=== PATIENT | female | born 1965 | race American Indian/Alaskan Native ===

== ENCOUNTER 2017-01-13 10:41 | Emergency (ER) | payer SELFPAY ==
--- NOTE | ~2017-01-13 | ER ---
PATIENT'S NAME: CYNTHIAMARIBELLBEND [facility] AGE: 51 Y [address] ROOM: [place] [address] LOCATION: [facility] ADMIT DATE: 01/13/2017 ER/Outpatient Report DISCHARGE DATE: 01/13/2017 FAMILY PHYSICIAN: PHYSICIAN, MARTI ATTENDING PHYSICIAN: Kitty Ricks Time of Arrival: 1041 hours. Time of Evaluation: 1110 hours. IDENTIFICATION: A 51-year-old female. CHIEF COMPLAINT: Left earache. HISTORY OF PRESENT ILLNESS: The patient presents complaining of left earache starting 1 week ago, . No fever or chills. She has had some nasal congestion. No drainage. No other problems or concerns. ALLERGIES: NO KNOWN DRUG ALLERGIES. CURRENT MEDICATIONS: No depression medications for the past 4 months. MEDICAL PROBLEMS: Depression. PRIOR SURGERIES: Tonsillectomy, tubal ligation, and right ear surgery as a child. SOCIAL HISTORY: The patient recently moved here from [place]. She is currently living at the [facility]. Tobacco use, 6 to 8 cigarettes per day. Alcohol use, denies. Drug use, denies. REVIEW OF SYSTEMS: All systems reviewed and negative other than what is noted in the HPI. FAMILY HISTORY: No pertinent family history. PHYSICAL EXAMINATION: VITAL SIGNS: Height 5 feet and 3 inches, weight 110.3 kg, blood pressure PATIENT'S NAME: DELMI [facility] AGE: 51 Y [address] ROOM: [place] [address] LOCATION: [facility] ADMIT DATE: 01/13/2017 ER/Outpatient Report DISCHARGE DATE: 01/13/2017 FAMILY PHYSICIAN: PHYSICIAN, MARTI ATTENDING PHYSICIAN: Kitty Ricks 133/63, pulse 73, respirations 16, temperature 98.4, and saturations 97% on room air. GENERAL: A 51-year-old female, in no acute distress. HEENT: Head: Normocephalic and atraumatic. Ears: TM translucent on the right. Left TM mildly erythematous. NECK: Supple. No lymphadenopathy. She is tender in the left anterior cervical lymphadenopathy. LUNGS: Clear to auscultation. HEART: Regular rate and rhythm. No murmur, rub, or gallop. ABDOMEN: Bowel sounds present. Soft. Nondistended. No hepatosplenomegaly. No palpable masses. Nontender. SKIN: [place], warm, and dry. No lesions or rashes noted. NEURO: No focal abnormalities. IMPRESSION: Left otitis media. PLAN: Amoxicillin 500 mg 2 tablets b.i.d. for 7 days, Tylenol or Advil, warm compresses as needed, and follow up with primary care at [facility] in 3 to 4 days. Follow up sooner if any problems or concerns. The patient understands and agrees, and all questions have been answered. MD PHYLLIS NAGEL/stacie /[id number] d: 01/13/172 t: 01/14/17 1427, OUTPATIENT REPORT
[2017-01-27] MEDS ORDERED: AMOXICILLIN250 MG PO (10:09)
[2017-01-27] MEDS ORDERED: SEROQUEL100 MG PO (10:31)
[2017-01-27] MEDS ORDERED: ZOLOFT50 MG PO (10:32)
[2017-01-27] MEDS ORDERED: SEROQUEL25 MG PO (10:34)
== END 2017-01-13 11:20 | disposition disaster alternative care site (69) ==
LOC: GMED 10:41
DX: H66.92 Otitis media, unspecified, left ear (principal)

== ENCOUNTER 2017-02-06 16:12 | Emergency (ER) | payer SELFPAY ==
--- NOTE | ~2017-02-06 | ER ---
PATIENT'S NAME: JARRED AWAD [facility] AGE: 51 Y [address] ROOM: [place] [address] LOCATION: [facility] ADMIT DATE: 02/06/2017 ER/Outpatient Report DISCHARGE DATE: FAMILY PHYSICIAN: PHYSICIAN, NO ATTENDING PHYSICIAN: Kevin Del Rio Admit Time: 1612 hours. Time of Evaluation: 1620 hours. CHIEF COMPLAINT: Left-sided facial swelling. HISTORY OF PRESENT ILLNESS: Jarred is a 51-year-old female, presents with staff from [facility] here in [place] with an onset of left-sided facial swelling. This started this morning. She reports she has also had a headache off and on for the last two days, it is tension in characteristic and encircles her whole head. She was seen here about 2-[address] Ricks, in which she did have a left otitis media, was treated with amoxicillin 500 mg two tablets twice a day for 7 days, in which she reports this is improved. She did finish her entire course. Also, yesterday, she was eating a jawbreaker, she reports having a little chip to her left front tooth. Also, she has had a history of a broken tooth to the left side that was greater than 6 months ago, but that was on the bottom. The patient denies any fevers, chills, nausea, vomiting. She denies any upper respiratory illnesses and/or symptoms. She denies any new exposures, shortness of breath, chest pain, or any possible allergic reaction. PAST MEDICAL HISTORY: 1. Depression with anxiety. 2. History of alcohol abuse, recovering alcoholic. 3. History of methamphetamine use. ALLERGIES: NO KNOWN MEDICAL ALLERGIES. MEDICATIONS: 1. Seroquel 150 mg 1 p.o. at h.s. 2. Zoloft 25 mg 1 p.o. daily. 3. Seroquel 25 mg 1 p.o. every 6 hours p.r.n. anxiety. SOCIAL HISTORY: The patient does smoke about 7 cigarettes a day, has a 35-year history of smoking. She has not drink any alcohol in the last 3 weeks. She does have a history of methamphetamine use, denies any abuse with narcotics. PATIENT'S NAME: JARRED AWAD [facility] AGE: 51 Y [address] ROOM: [place], [place] [address] LOCATION: [facility] ADMIT DATE: 02/06/2017 ER/Outpatient Report DISCHARGE DATE: FAMILY PHYSICIAN: PHYSICIAN, NO ATTENDING PHYSICIAN: Kevin Del Rio FAMILY HISTORY: Not obtained. REVIEW OF SYSTEMS: All systems reviewed by myself and negative the exception of those noted in the HPI. PHYSICAL EXAM: VITAL SIGNS: Height 5 feet 3 inches, weight 107.6 kg, temp 99.6, pulse 87, respirations 16, blood pressure 124/86, she is 95% on room air. GENERAL: The patient is alert, cooperative, in no acute distress. SKIN: Overall is within normal limits. HEAD: Normocephalic, atraumatic. EYES: Sclerae are nonicteric. Pupils equal, round, reactive to light. EARS: Right ear canal is clear. TM is intact. Left ear canal is clear. TM is still mildly red, reports it does not really hurt, but her left jaw does. Left facial swelling is evident. There is no redness noted. She is a little bit tender over the maxillary area. NOSE: Nasal turbinates are mildly swollen, boggy in appearance. MOUTH AND THROAT: Oropharynx is clear. Buccal mucosa is moist. Tongue is midline. Uvula is midline. Also, she has multiple teeth that are missing. Left front tooth is chipped to the left upper palate about midway back, she has a broken out tooth. It is very tender to this area with palpation and a little bit of inflammation and redness. There is no active drainage noted. Down below, I can feel that broken off tooth and she was telling me about that there is no tenderness or redness present. NECK: No lymphadenopathy present. CHEST AND LUNGS: Lung sounds are clear throughout. HEART: Regular rhythm, no murmur appreciated. NEUROLOGIC: Cranial nerves grossly intact. Please note, there were no labs or x-rays done with this visit today. ASSESSMENT: 1. Dental pain, left upper side. 2. Left otitis media. PLAN: I did call and consult with the pharmacy to try and abide by financial concerns, we were able to get her Keflex 500 mg one p.o. q.i.d. x10 days and also ibuprofen 800 mg one p.o. t.i.d. p.r.n. pain x1 week. A script was wrote and given to the staff member that is here from [place] with her. Also, she is going to use cold packs as needed, soft food, lots of fluids, and also if there is any increase of redness, swelling, pain, or fevers, she is to PATIENT'S NAME: JARRED AWAD [facility] AGE: 51 Y [address] ROOM: [place] [address] LOCATION: [facility] ADMIT DATE: 02/06/2017 ER/Outpatient Report DISCHARGE DATE: FAMILY PHYSICIAN: PHYSICIAN, NO ATTENDING PHYSICIAN: Kevin Del Rio return to the emergency room. The staff at [facility] are going to look into a dentist, see if what they can figure out for the next week. The patient's condition is stable, no further questions at this time. NAV BUCK APRN FOR MD ARTHUR JETER/stacie /[id number] d: 02/06/172324 t: 02/11/172222, OUTPATIENT REPORT
[~2017-02-06 16:12] MED LIST: AMOXICILLIN250 MG PO; SEROQUEL100 MG PO; SEROQUEL25 MG PO; ZOLOFT50 MG PO
== END 2017-02-06 16:58 | disposition disaster alternative care site (69) ==
LOC: GMED 16:12
DX: K08.89 Other specified disorders of teeth and supporting structures (principal); H66.92 Otitis media, unspecified, left ear; F32.9 Major depressive disorder, single episode, unspecified; F41.9 Anxiety disorder, unspecified

== ENCOUNTER 2017-06-28 14:58 | Emergency (ER) | payer SELFPAY ==
--- NOTE | ~2017-06-28 | ENPV ---
Vascular Lower Extremities DVT Study Procedure Demographics Patient Name JARRED AWAD Date of Study 06/28/2017 Patient Number [id number] Gender Female Date of 1965 Age 52 Visit Number [id number] Height Accession Number [id number] Weight Room Number BSA BMI Referring Millicent Abbott Interpreting Santi Kohli MD Physician Physician Physician Ordering Physician Cardiac Technician Skein Yarn Drier Shaheed Rubalcava RVT, RDMS Conclusions Summary No evidence of deep vein thrombosis or superficial thrombophlebitis in the left lower extremity . Procedure Type of Study: Veins:Lower Extremities DVT Study, Lower Extremity Left. Indications for Study:Unilateral pain. Patient Status:STAT. Study Location:ER. Technical Quality:Good visualization. - Preliminary reported to:Dr. Ricks. Velocities are measured in cm/s ; Diameters are measured in cm Right Lower Extremities DVT Study Measurements Right 2D and Doppler Measurements + + + + +------+------+ + !Location !Visualized!Compressibility!Thrombosis!Signal!Reflux!Reflux ! ! ! ! ! ! ! !(sec) ! + + + + +------+------+ + !Common !Yes !Yes !None !Phasic! ! ! !Femoral ! ! ! ! ! ! ! + + + + +------+------+ + Left Lower Extremities DVT Study Measurements Left 2D and Doppler Measurements + + + + +------+------+ + !Location !Visualized!Compressibility!Thrombosis!Signal!Reflux!Reflux ! ! ! ! ! ! ! !(sec) ! + + + + +------+------+ + !GSV Thigh !Yes !Yes !None !Phasic! ! ! + + + + +------+------+ + !Common !Yes !Yes !None !Phasic! ! ! !Femoral ! ! ! ! ! ! ! + + + + +------+------+ + !Prox !Yes !Yes !None !Phasic! ! ! !Femoral ! ! ! ! ! ! ! + + + + +------+------+ + !Mid Femoral!Yes !Yes !None !Phasic! ! ! + + + + +------+------+ + !Dist !Yes !Yes !None !Phasic! ! ! !Femoral ! ! ! ! ! ! ! + + + + +------+------+ + !Popliteal !Yes !Yes !None !Phasic! ! ! + + + + +------+------+ + !PTV !Yes !Yes !None !Phasic! ! ! + + + + +------+------+ + !Peroneal !Yes !Yes !None !Phasic! ! ! + + + + +------+------+ + Signature dtt: HUMPHREY PRATT dtjoe: 06/28/17 1539 Physician Self Edit
--- NOTE | ~2017-06-28 | ER ---
PATIENT'S NAME: DELMI JARRED [facility] AGE: 52 Y [address] ROOM: [place] [address] LOCATION: [facility] ADMIT DATE: 06/28/2017 ER/Outpatient Report DISCHARGE DATE: 06/28/2017 FAMILY PHYSICIAN: PHYSICIAN, NO ATTENDING PHYSICIAN: Kitty Ricks Time of Arrival: 1458 hours. Time of Evaluation/Seen: 1505 hours. IDENTIFICATION: A 52-year-old female. CHIEF COMPLAINT: Left calf pain. HISTORY OF PRESENT ILLNESS: The patient had bilateral calf pain yesterday after unloading some things. Today, she was running and felt a pop in her left calf and has had pain and difficulty weightbearing. No other injuries. No numbness or tingling. PAST MEDICAL HISTORY: ALLERGIES: NO KNOWN DRUG ALLERGIES. CURRENT MEDICATIONS: 1. Seroquel 50 mg daily p.r.n. 2. Seroquel 150 mg at bedtime. 3. Trazodone 50 mg at bedtime. 4. Prozac 60 mg daily. MEDICAL PROBLEMS: 1. Anxiety and depression. 2. Bipolar. 3. History of asthma. PAST SURGICAL HISTORY: Prior Surgeries: 1. Tubal ligation. 2. Ear surgery. 3. T and A. SOCIAL HISTORY: The patient is living at [facility]. Tobacco use, seven cigarettes per day. Alcohol use, denies. Drug use, denies. PATIENT'S NAME: DELMI JARRED [facility] AGE: 52 Y [address] ROOM: [place] [address] LOCATION: [facility] ADMIT DATE: 06/28/2017 ER/Outpatient Report DISCHARGE DATE: 06/28/2017 FAMILY PHYSICIAN: PHYSICIAN, NO ATTENDING PHYSICIAN: Kitty Ricks REVIEW OF SYSTEMS: All systems were reviewed and negative other than what is noted in the HPI. PHYSICAL EXAMINATION: VITAL SIGNS: Height 5 feet 3 inches and weight 111.4 kg. Blood pressure 125/60, pulse 84, respiratory rate is 24, temperature 97.5, and saturations 97% on room air. GENERAL: A 52-year-old female, in mild pain. HEENT: Unremarkable. LUNGS: Clear to auscultation. HEART: Regular rate and rhythm. ABDOMEN: Soft, nondistended, and nontender. SKIN: [place], warm, and dry. No lesions or rashes noted. NEUROLOGIC: No focal deficit. Left lower extremity neurovascularly intact. Full range of motion, but pain with flexion and extension, but she does have full range of motion. No swelling or deformities are noted. No bruising or ecchymosis. She is tender to palpation along her gastrocnemius bilaterally, and no palpable abnormalities. Achilles tendon is palpably intact with no defects and no tenderness. DIAGNOSTIC DATA: Doppler of her left lower extremity is negative for DVT. X-ray of her left lower extremity is negative for fracture. Pending Radiology over-read. IMPRESSION AND PLAN: Left calf pain possible gastrocnemius tear. Babar, ice, elevate, crutches, and no weightbearing. Ibuprofen 400 mg 3 to 4 times daily. Follow up with Dr. Aguiar or [facility] next week. Follow up sooner if any problems or concerns. The patient understands and all questions have been answered. KITTY RICKS MD CAR/modl /[id number] d: 06/28/172014 t: 06/29/17 0726, OUTPATIENT REPORT
== END 2017-06-28 16:35 | disposition disaster alternative care site (69) ==
LOC: GACC 14:58
DX: M79.662 Pain in left lower leg (principal); F32.9 Major depressive disorder, single episode, unspecified; F41.9 Anxiety disorder, unspecified; F17.210 Nicotine dependence, cigarettes, uncomplicated; Z98.890 Other specified postprocedural states; Z90.89 Acquired absence of other organs; Z98.51 Tubal ligation status; X50.9XXA Other and unspecified overexertion or strenuous movements or postures, initial encounter; Y93.02 Activity, running; Y99.8 Other external cause status